=== PATIENT | male | born 1930 | race Caucasian/White ===

== ENCOUNTER 2019-08-04 09:08 | Day surgery (SDC) | payer OTHER, BC ==
[~2019-08-04] VITALS: Ht 170.2 cm; Wt 86.2 kg
[~2019-08-04 09:08] MED LIST: CARVEDILOL25 MG PO; COZAAR 25 MG TA25 M1 PO; WARFARIN SODIU2.5 MG PO
[2019-08-04 09:48] LABS: INR 1.1; PROTIME 11.4 Seconds (9.3-11.4)
[2019-08-04 09:59] VITALS: BP 165/96
--- NOTE | 2019-08-08 06:22 | O ---
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 PROCEDURE: Bilateral lower lid ectropion repair with transconjunctival right lower lid and cheek lift. SURGEON: Duane Emerson MD PLEAT TAPER: None. ANESTHESIA: MAC. COMPLICATIONS: None. INDICATIONS FOR SURGERY: This pleasant 89-year-old gentleman has bilateral lower lid ectropion. 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 He presents today for a bilateral lower lid and cheek procedure in order to attempt to improve his ocular surface milieu and reduce his risk for loss of vision. DESCRIPTION OF PROCEDURE: The patient was taken to the operating room where 2% Xylocaine with epinephrine mixed with equal parts of 0.75% Marcaine with Wydase was administered transcutaneously and transconjunctivally to each lower lid and lateral canthus. In addition, on the right side, the medial canthus, the right cheek and the right infratemporal fossa were anesthetized. The patient was subsequently prepped and draped in the usual sterile fashion. A Betty clamp was then used to clamp the left lateral canthus following which a sharp canthotomy and cantholysis was performed. A tarsal strip was then prepared laterally removing the lash bearing portion of the redundant lid margin and the redundant tarsal plate. Hemostasis was then re-achieved. The tarsal strip was then resuspended to the internal portion of the lateral orbital [address] [place] [address] OPERATIVE REPORT Name: CHIQUITA RUBALCAVA Room #: [facility].[place].#: [id number] Admission: 08/04/19 Attend Phys: Duane Emerson MD Discharge: 08/04/19 Date of : 34 Report #: [id number] tubercle with interrupted 5-0 Prolene sutures. The subcutaneous structures and the skin were then closed with interrupted 6-0 plain gut sutures. The right lateral canthus was then clamped with a Russell clamp. A sharp canthotomy and cantholysis was then performed. A tarsal strip was then prepared removing the lash bearing portion of the redundant lid margin and the redundant tarsal plate. Hemostasis was once again achieved. Attention was then turned to the transconjunctival lower lid and cheek lift. A transconjunctival incision was made below the inferior border of the tarsal plate across the width of the lid. The dissection was then carried down sharply into the premalar tissues. Hemostasis was then re-achieved. The lower lid and cheek tissues were then elevated and resuspended with interrupted 5-0 chromic sutures. The lower lid and cheek lifted well. Attention was then turned to completion of the ectropion repair. The tarsal strip was then secured to the internal portion of the lateral orbital tubercle with interrupted 5-0 Prolene sutures. The subcutaneous structures and the skin were then closed with 6-0 plain gut sutures. The wounds were then cleaned and dressed with erythromycin ophthalmic ointment. The patient subsequently transported to the recovery area having tolerated the procedures well with no anesthetic or operative complications being noted. <ELECTRONICALLY SIGNED> By: Duane Emerson MD 08/08/19 0622 [id number] Duane Emerson MD /nt
== END 2019-08-04 14:05 | disposition home or self-care (01) ==
LOC: TBA 09:08 → OR 09:08
PROVIDERS: Ophthalmology
DX: H02.102 Unspecified ectropion of right lower eyelid (principal); H02.105 Unspecified ectropion of left lower eyelid; H02.532 Eyelid retraction right lower eyelid; H02.202 Unspecified lagophthalmos right lower eyelid; H18.9 Unspecified disorder of cornea; G47.30 Sleep apnea, unspecified; Z87.891 Personal history of nicotine dependence; I10 Essential (primary) hypertension; Z85.828 Personal history of other malignant neoplasm of skin; I48.91 Unspecified atrial fibrillation; Z79.01 Long term (current) use of anticoagulants; Z87.442 Personal history of urinary calculi; Z98.41 Cataract extraction status, right eye; Z98.42 Cataract extraction status, left eye; Z86.19 Personal history of other infectious and parasitic diseases; Z98.890 Other specified postprocedural states; Z79.899 Other long term (current) drug therapy; Z88.8 Allergy status to other drugs, medicaments and biological substances
CPT/HCPCS: 50010; 50101; 50386; 50398; 51636; 56527; 56531; 62110; 62850; 70005